=== PATIENT | female | born 1985 | race Caucasian/White ===

== ENCOUNTER 2016-08-05 16:06 | Inpatient (IN) | payer MEDICAID, OTHER ==
[2016-08-05 16:49] LABS: APPEARANCE,URINE SLIGHTLY-CLOUDY; BILIRUBIN,URINE NEGATIVE (NEGATIVE); GLUCOSE, URINE NEGATIVE (NEGATIVE); KETONES,URINE NEGATIVE (NEGATIVE); LEUKOCYTE ESTERASE,URINE NEGATIVE (NEGATIVE); NITRITE,URINE NEGATIVE (NEGATIVE); PROTEIN,URINE NEGATIVE (NEGATIVE); URINE SPECIFIC GRAVITY 1.012; UROBILINOGEN,URINE NEGATIVE mg/dL (<2.0)
[2016-08-05 17:08] LABS: URINE METHADONE SCREEN NEGATIVE; URINE OPIATES LOW NEGATIVE; URINE PHENCYCLIDINE SCREEN NEGATIVE
[2016-08-05 17:17] LABS: URINE BARBITURATES SCREEN NEGATIVE
[2016-08-05] MEDS ORDERED: PENICILLIN G-K 5 MILLION UNIT VIAL ONE (18:56)
[2016-08-05] MEDS ORDERED: PENICILLIN G POTASSIUM 5,000,000 UNIT in DEXTROSE 5%-WATER 100 ML IV ONE (19:05)
[2016-08-05] MEDS ORDERED: RINGERS SOLUTION,LACTATED 1,000 ML IV ONE (19:05)
[2016-08-05] MEDS ORDERED: RINGERS SOLUTION,LACTATED 1,000 ML IV PRN (19:05)
[2016-08-05 19:24] LABS: ABSOLUTE EOSINOPHILS # (AUTO) 0.1 10^3/uL (0.0-0.6); ABSOLUTE MONOCYTES (AUTO) 0.6 10^3/uL (0.1-1.4); BASOPHILS % (AUTO) 0.6 % (0-2); HEMATOCRIT 35.4 % (36.0-47.0); HGB HCT DIFFERENCE 0.6; LYMPHOCYTES % (AUTO) 22.7 % (13-45); MEAN CORPUSCULAR HEMOGLOBIN 30.2 pg (27.0-33.4); MEAN CORPUSCULAR HGB CONC 33.9 g/dL (32.0-36.0); MEAN CORPUSCULAR VOLUME 89 fl (80-97); MONOCYTES % (AUTO) 6.5 % (3-13); RED BLOOD COUNT 3.97 10^6/uL (3.72-5.28); SEGMENTED NEUTROPHILS % (AUTO) 69.2 % (42-78); WHITE BLOOD COUNT 8.7 10^3/uL (4.0-10.5)
[2016-08-05] MEDS ORDERED: EPHEDRINE SULFATE INJ 50 MG/1 ML AMPULE ONE (19:28)
[2016-08-05] MEDS ORDERED: MISOPROSTOL 0.2 MG TABLET ONE (19:28)
[2016-08-05] MEDS ORDERED: BUPIVACAINE HCL 0.25 % INJ/PF (2.5 MG/1 ML) 30 ML VIAL ONE (19:29)
[2016-08-05] MEDS ORDERED: LIDOCAINE 1% INJ-PF (10 MG/ML) 30 ML SDV ONE (19:29)
[2016-08-05] MEDS ORDERED: FENTANYL/BUPIVACAINE/NS/PF 200 MCG/100 ML RTUINJ EPI ONE (19:29)
[2016-08-05] MEDS ORDERED: OXYTOCIN/NORMAL SALINE 20 UNIT/1,000 ML RTUINJ ONE (19:29)
--- NOTE | 2016-08-05 20:00 | L&D Flow Sheet ---
LD Flowsheet Datetime Report Generated by CPN: 08/05/2016 20:00 Datetime: 08/05/2016 19:57 Vital Signs NBP Sys/Clementine/Mean (mmHg): 136 (QS system process) : 73 (QS system process) : 100 (QS system process) Pulse: 88 (QS system process) Datetime: 08/05/2016 19:54 Membrane Status: Ruptured (Shavon Prieto) Membranes Ruptured Date/Time: 08/05/2016 19:52 (Shavon Prieto) Membranes Rupture Method: Spontaneous (Shavon Prieto) Datetime: 08/05/2016 19:52 Vital Signs NBP Sys/Clementine/Mean (mmHg): 138 (QS system process) : 73 (QS system process) : 99 (QS system process) Pulse: 84 (QS system process) Datetime: 08/05/2016 19:50 Pulse: 92 (QS system process) SpO2 (%): 100 (QS system process) Anesthesia Anesthesia Plans: Epidural (Shavon Prieto) Epidural Positioning: Sitting (Shavon Prieto) Epidural Procedure: Cath Placed (Shavon Prieto) Datetime: 08/05/2016 19:49 Anesthesia Anesthesia Plans: Epidural (Shavon Prieto) Epidural Positioning: Sitting (Shavon Prieto) Epidural Procedure: Test Dose (Shavon Prieto) Datetime: 08/05/2016 19:48 Anesthesia Anesthesia Plans: Epidural (Shavon Prieto) Epidural Positioning: Sitting (Shavon Prieto) Datetime: 08/05/2016 19:47 Vital Signs NBP Sys/Clementine/Mean (mmHg): 150 (QS system process) : 92 (QS system process) : 114 (QS system process) Pulse: 85 (QS system process) Datetime: 08/05/2016 19:45 Pulse: 84 (QS system process) SpO2 (%): 98 (QS system process) Datetime: 08/05/2016 19:43 Vital Signs NBP Sys/Clementine/Mean (mmHg): 142 (QS system process) : 77 (QS system process) : 104 (QS system process) Pulse: 86 (QS system process) Datetime: 08/05/2016 19:42 Anesthesia Anesthesia Plans: Epidural (Shavon Prieto) Anesthesia Comments: Dr Chekan at the bedside (Shavon Prieto) Datetime: 08/05/2016 19:40 Pulse: 80 (QS system process) SpO2 (%): 98 (QS system process) Datetime: 08/05/2016 19:39 Anesthesia Anesthesia Plans: Epidural (Shavon Prieto) Epidural Positioning: Sitting (Shavon Prieto) Datetime: 08/05/2016 19:36 Vital Signs NBP Sys/Clementine/Mean (mmHg): 140 (QS system process) : 76 (QS system process) : 100 (QS system process) Pulse: 78 (QS system process) Procedure TIME OUT Procedure Type: epidrual (Shavon Prieto) Procedure Verify: Correct Patient Identity; Correct Side and Site are Marked; Accurate Procedure Consent Form; Agreement on Procedure to be Done; Correct Patient Position; Relevant Images and Results are Properly Labeled and Displayed; Safety Precautions Based on Patient History or Medication Use (Shavon Prieto) Datetime: 08/05/2016 19:33 Anesthesia Anesthesia Plans: Epidural (Shavon Prieto) Epidural Positioning: Sitting (Shavon Prieto) Datetime: 08/05/2016 19:29 Vital Signs NBP Sys/Clementine/Mean (mmHg): 143 (QS system process) : 73 (QS system process) : 102 (QS system process) Pulse: 78 (QS system process) Datetime: 08/05/2016 19:25 Procedure TIME OUT Procedure Type: epidural (Shavon Prieto) Procedure Verify: Correct Patient Identity; Correct Side and Site are Marked; Accurate Procedure Consent Form; Agreement on Procedure to be Done; Correct Patient Position; Relevant Images and Results are Properly Labeled and Displayed; Safety Precautions Based on Patient History or Medication Use (Shavon Prieto) Datetime: 08/05/2016 19:15 Procedure TIME OUT Procedure Type: epidural (Shavon Prieto) Procedure Verify: Correct Patient Identity; Correct Side and Site are Marked; Accurate Procedure Consent Form; Agreement on Procedure to be Done; Correct Patient Position; Relevant Images and Results are Properly Labeled and Displayed; Safety Precautions Based on Patient History or Medication Use (Shavon Prieto) Datetime: 08/05/2016 19:14 Medications Antibiotics: Penicillin IV (Units) @ (Annotations: [id number] units) (Shavon Prieto) Datetime: 08/05/2016 19:12 Patient Care IV/Blood Work: IV Started; IV Bolus Started (Annotations: 18g right forearm) (Shavon Prieto) Datetime: 08/05/2016 18:47 Communication Communication: Provider at Bedside (Angelique Turner RN) Communication Comments: Orders for admission received. (Angelique Turner [facility]) Datetime: 08/05/2016 18:46 Vaginal Exam Dilatation (cm): 6.0 (Angelique Turner [facility] [facility]) Effacement (%): 90 (Angelique Turner [facility] [facility]) Station: -2 (Angelique Turner [facility]) Exam by: Dr. Deleon (Angelique Turner [facility]) Membrane Status: Intact (Angelique Turner RN) Datetime: 08/05/2016 17:30 Uterine Activity Monitor Mode: External; Palpation (Angelique Johnny, RNC) Frequency (min): 8-12 (Angelique Johnny, RNC) Quality: Mild/Moderate (Angelique Johnny, RNC) Duration (sec): 90-120 (Angelique Johnny, RNC) Duration Criteria: Less than Two 120 Second Contractions (Angelique Johnny, RNC) Pattern: Normal: <= 5 Contractions in 10 Minutes (Angelique Johnny, RNC) Resting Tone (Palpate): Relaxed (Angelique Johnny, RNC) Assessment A Monitor Mode: External US (Angelique Johnny, RNC) FHR Baseline Rate : 135 (Angelique Johnny, RNC) Variability: Moderate 6-25 bpm (Angelique Johnny, RNC) Accelerations: Prolonged (Angelique Johnny, RNC) Decelerations: None (Angelique Johnny, RNC) Datetime: 08/05/2016 17:00 Uterine Activity Monitor Mode: External; Palpation (Angelique Johnny, C) Frequency (min): 8-15 (Angelique Johnny, C) Quality: Mild/Moderate (Angelique Johnny, RNC) Duration (sec): 90-120 (Angelique Johnny, RNC) Duration Criteria: Less than Two 120 Second Contractions (Angelique Johnny, RNC) Pattern: Normal: <= 5 Contractions in 10 Minutes (Angelique Johnny, RNC) Resting Tone (Palpate): Relaxed (Angelique Johnny, C) Assessment A Monitor Mode: External US [facility] Baseline Rate : 135 [facility] Variability: Moderate 6-25 bpm [facility] Accelerations: 15X15 ([facility] Decelerations: None [facility] Datetime: 08/05/2016 16:38 Vaginal Exam Dilatation (cm): 4.0 (Angelique Turner, [facility]) Effacement (%): 70 (Angelique Turner, [facility]) Station: -3 [facility] Exam by: Fanny Johnny RN ([facility] Datetime: 08/05/2016 16:31 Vital Signs NBP Sys/Clementine/Mean (mmHg): 133 (QS system process) : 75 (QS system process) : 93 (QS system process) Pulse: 82 (QS system process) Frequency (min): 5 min (Angelique Johnny, RNC) Pain Pain Scale: 2 (Angelique Turner RNC) Pain Presence: Intermittent (Angelique Turner, RNC) Pain Type: Cramping; Contraction (Angelique Turner, RNC) Pain Location: Abdomen (Angelique Turner, RNC) Maternal Assessment Level of Consciousness: Fully Conscious (Angelique Johnny, RNC) DTR's/Clonus: DTRs 2+; No Clonus (Angelique Johnny, RNC) Headache: Denies (Angelique Johnny, RNC) Breath Sounds, Left: Clear and Equal (Angelique Johnny, RNC) Breath Sounds, Right: Clear and Equal (Angelique Johnny, RNC) Nausea/Vomiting: Denies (Angelique Johnny, RNC) RUQ Epigastric Pain: Denies (Angelique Johnny, RNC) Teaching Instructional Method: Verbal; Patient Instructed; Verbalized Understanding (MALENA Kan) Plan of Care: Plan of Care Discussed; Labor (MALENA Kan) Unit Routine: [place] to Room; Call Bran; Handwashing; Monitoring; Bathroom Privileges (MALENA Kan) Notification Reason: Labor Status (MALENA Kan)
--- NOTE | 2016-08-05 20:01 | L&D Flow Sheet ---
LD Flowsheet Datetime Report Generated by CPN: 08/05/2016 20:00 Datetime: 08/05/2016 19:57 Vital Signs NBP Sys/Clementine/Mean (mmHg): 136 (QS system process) : 73 (QS system process) : 100 (QS system process) Pulse: 88 (QS system process) Datetime: 08/05/2016 19:54 Membrane Status: Ruptured (Shavon Prieto) Membranes Ruptured Date/Time: 08/05/2016 19:52 (Shavon Prieto) Membranes Rupture Method: Spontaneous (Shavon Prieto) Datetime: 08/05/2016 19:52 Vital Signs NBP Sys/Clementine/Mean (mmHg): 138 (QS system process) : 73 (QS system process) : 99 (QS system process) Pulse: 84 (QS system process) Datetime: 08/05/2016 19:50 Pulse: 92 (QS system process) SpO2 (%): 100 (QS system process) Anesthesia Anesthesia Plans: Epidural (Shavon Prieto) Epidural Positioning: Sitting (Shavon Prieto) Epidural Procedure: Cath Placed (Shavon Prieto) Datetime: 08/05/2016 19:49 Anesthesia Anesthesia Plans: Epidural (Shavon Prieto) Epidural Positioning: Sitting (Shavon Prieto) Epidural Procedure: Test Dose (Shavon Prieto) Datetime: 08/05/2016 19:48 Anesthesia Anesthesia Plans: Epidural (Shavon Prieto) Epidural Positioning: Sitting (Shavon Prieto) Datetime: 08/05/2016 19:47 Vital Signs NBP Sys/Clementine/Mean (mmHg): 150 (QS system process) : 92 (QS system process) : 114 (QS system process) Pulse: 85 (QS system process) Datetime: 08/05/2016 19:45 Pulse: 84 (QS system process) SpO2 (%): 98 (QS system process) Datetime: 08/05/2016 19:43 Vital Signs NBP Sys/Clementine/Mean (mmHg): 142 (QS system process) : 77 (QS system process) : 104 (QS system process) Pulse: 86 (QS system process) Datetime: 08/05/2016 19:42 Anesthesia Anesthesia Plans: Epidural (Shavon Prieto) Anesthesia Comments: Dr Chekan at the bedside (Shavon Prieto) Datetime: 08/05/2016 19:40 Pulse: 80 (QS system process) SpO2 (%): 98 (QS system process) Datetime: 08/05/2016 19:39 Anesthesia Anesthesia Plans: Epidural (Shavon Prieto) Epidural Positioning: Sitting (Shavon Prieto) Datetime: 08/05/2016 19:36 Vital Signs NBP Sys/Clementine/Mean (mmHg): 140 (QS system process) : 76 (QS system process) : 100 (QS system process) Pulse: 78 (QS system process) Procedure TIME OUT Procedure Type: epidrual (Shavon Prieto) Procedure Verify: Correct Patient Identity; Correct Side and Site are Marked; Accurate Procedure Consent Form; Agreement on Procedure to be Done; Correct Patient Position; Relevant Images and Results are Properly Labeled and Displayed; Safety Precautions Based on Patient History or Medication Use (Shavon Prieto) Datetime: 08/05/2016 19:33 Anesthesia Anesthesia Plans: Epidural (Shavon Prieto) Epidural Positioning: Sitting (Shavon Prieto) Datetime: 08/05/2016 19:29 Vital Signs NBP Sys/Clementine/Mean (mmHg): 143 (QS system process) : 73 (QS system process) : 102 (QS system process) Pulse: 78 (QS system process) Datetime: 08/05/2016 19:25 Procedure TIME OUT Procedure Type: epidural (Shavon Prieto) Procedure Verify: Correct Patient Identity; Correct Side and Site are Marked; Accurate Procedure Consent Form; Agreement on Procedure to be Done; Correct Patient Position; Relevant Images and Results are Properly Labeled and Displayed; Safety Precautions Based on Patient History or Medication Use (Shavon Prieto) Datetime: 08/05/2016 19:15 Procedure TIME OUT Procedure Type: epidural (Shavon Prieto) Procedure Verify: Correct Patient Identity; Correct Side and Site are Marked; Accurate Procedure Consent Form; Agreement on Procedure to be Done; Correct Patient Position; Relevant Images and Results are Properly Labeled and Displayed; Safety Precautions Based on Patient History or Medication Use (Shavon Prieto) Datetime: 08/05/2016 19:14 Medications Antibiotics: Penicillin IV (Units) @ (Annotations: [id number] units) (Shavon Prieto) Datetime: 08/05/2016 19:12 Patient Care IV/Blood Work: IV Started; IV Bolus Started (Annotations: 18g right forearm) (Shavon Prieto) Datetime: 08/05/2016 18:47 Communication Communication: Provider at Bedside (Angelique Turner RN) Communication Comments: Orders for admission received. (Angelique Turner [facility]) Datetime: 08/05/2016 18:46 Vaginal Exam Dilatation (cm): 6.0 (Angelique Turner [facility]) Effacement (%): 90 (Angelique Turner [facility]) Station: -2 (Angelique Turner [facility]) Exam by: Dr. Deleon (Angelique Turner [facility]) Membrane Status: Intact (Angelique Turner RN) Datetime: 08/05/2016 17:30 Uterine Activity Monitor Mode: External; Palpation (Angelique Johnny, RNC) Frequency (min): 8-12 (Angelique Johnny, RNC) Quality: Mild/Moderate (Angelique Johnny, RNC) Duration (sec): 90-120 (Angelique Johnny, RNC) Duration Criteria: Less than Two 120 Second Contractions (Angelique Johnny, RNC) Pattern: Normal: <= 5 Contractions in 10 Minutes (Angelique Johnny, RNC) Resting Tone (Palpate): Relaxed (Angelique Johnny, RNC) Assessment A Monitor Mode: External US (Angelique Johnny, RNC) FHR Baseline Rate : 135 (Angelique Johnny, RNC) Variability: Moderate 6-25 bpm (Aneglique Johnny, RNC) Accelerations: Prolonged (Angelique Johnny, RNC) Decelerations: None (Angelique Johnny, RNC) Datetime: 08/05/2016 17:00 Uterine Activity Monitor Mode: External; Palpation (Angelique Johnny, C) Frequency (min): 8-15 (Angelique Johnny, C) Quality: Mild/Moderate (Angelique Johnny, RNC) Duration (sec): 90-120 (Angelique Johnny, RNC) Duration Criteria: Less than Two 120 Second Contractions (Angelique Johnny, RNC) Pattern: Normal: <= 5 Contractions in 10 Minutes (Angelique Johnny, RNC) Resting Tone (Palpate): Relaxed (Angelique Johnny, C) Assessment A Monitor Mode: External US [facility] FHR Baseline Rate : 135 [facility] Variability: Moderate 6-25 bpm [facility] Accelerations: 15X15 [facility] Decelerations: None [facility] Datetime: 08/05/2016 16:38 Vaginal Exam Dilatation (cm): 4.0 (Angelique Turner, [facility]) Effacement (%): 70 (Angelique Turner, [facility]) Station[facility] -3 [facility] Exam by: Fanny Johnny RN [facility] Datetime: 08/05/2016 16:31 Vital Signs NBP Sys/Clementine/Mean (mmHg): 133 (QS system process) : 75 (QS system process) : 93 (QS system process) Pulse: 82 (QS system process) Frequency (min): 5 min (Angelique Johnny, RNC) Pain Pain Scale: 2 (Angelique Turner RNC) Pain Presence: Intermittent (Angelique Turner, RNC) Pain Type: Cramping; Contraction (Angelique Turner, RNC) Pain Location: Abdomen (Angelique Turner, RNC) Maternal Assessment Level of Consciousness: Fully Conscious (Angelique Johnny, RNC) DTR's/Clonus: DTRs 2+; No Clonus (Angelique Johnny, RNC) Headache: Denies (Angelique Johnny, RNC) Breath Sounds, Left: Clear and Equal (Angelique Johnny, RNC) Breath Sounds, Right: Clear and Equal (Angelique Johnny, RNC) Nausea/Vomiting: Denies (Angelique Johnny, RNC) RUQ Epigastric Pain: Denies (Angelique Johnny, RNC) Teaching Instructional Method: Verbal; Patient Instructed; Verbalized Understanding (MALENA Kan) Plan of Care: Plan of Care Discussed; Labor (MALENA Kan) Unit Routine: [place] to Room; Call Bran; Handwashing; Monitoring; Bathroom Privileges (MALENA Kan) Notification Reason: Labor Status (MALENA Kan)
[2016-08-05] MEDS ORDERED: MEASLES,MUMPS&RUBELLA VACC/PF 0.5 ML VIAL SUBCUT PRN (21:09)
[2016-08-05] MEDS ORDERED: DIPHENHYDRAMINE HCL 25 MG CAPSULE PO PRN (21:09)
[2016-08-05] MEDS ORDERED: PROMETHAZINE HCL INJ 25 MG/1 ML VIAL IV PRN (21:09)
[2016-08-05] MEDS ORDERED: MAGNESIUM HYDROXIDE SUSP 30 ML UDCUP PO PRN (21:09)
[2016-08-05] MEDS ORDERED: NA PHOS,M-B/NA PHOS,DI-BA (ADULT) 133 ML ENEMA PR PRN (21:09)
[2016-08-05] MEDS ORDERED: OXYTOCIN/NORMAL SALINE 1,000 ML IV PRN (21:09)
[2016-08-05] MEDS ORDERED: ZOLPIDEM TARTRATE 5 MG TABLET PO PRN (21:09)
[2016-08-05] MEDS ORDERED: GLYCERIN/WITCH HAZEL LEAF 1 EACH MED..PAD TP PRN (21:09)
[2016-08-05] MEDS ORDERED: ACETAMINOPHEN WITH CODEINE #3 TABLET PO PRN ×2 (21:09)
[2016-08-05] MEDS ORDERED: DIPH/PERTUSS(ACELL)/TETANUS VAC/PF 0.5 ML SYR (>=10YO) IM PRN (21:09)
[2016-08-05] MEDS ORDERED: PSEUDOEPHEDRINE HCL 30 MG TABLET PO PRN (21:09)
[2016-08-05] MEDS ORDERED: BENZOCAINE/MENTHOL AEROSOL SPRAY 56 ML TOP PRN (21:09)
[2016-08-05] MEDS ORDERED: PROMETHAZINE HCL 25 MG SUPP.RECT PR PRN (21:09)
[2016-08-05] MEDS ORDERED: PROMETHAZINE HCL 25 MG TABLET PO PRN (21:09)
[2016-08-05] MEDS ORDERED: ACETAMINOPHEN 650 MG SUPP.RECT PR PRN (21:09)
[2016-08-05] MEDS ORDERED: DIBUCAINE 1% OINTMENT 28 GM TP PRN (21:09)
--- NOTE | 2016-08-05 22:22 | Admission Physical ---
Datetime Report Generated by CPN: 08/05/2016 22:22 CURRENT ADMISSION Chief Complaint: Uterine Contractions Indication for Induction: Postterm; Macrosomia Admit Plan: Admit to Unit; Initiate Labor Protocol ALLERGIES Medication Allergies: No Medication Allergies: No Known Allergies (08/05/2016) Medication Allergies: No Known Allergies (10/24/2010) Latex: No Latex Allergies OBSTETRICAL HISTORY EDC: 08/02/2016 00:00 : 6 Para: 4 Term: 4 : 0 SAB: 1 IAB: 0 Ectopic: 0 Livin Cesareans: 0 VBACs: 0 Multiple Births: 0 Gestational Diabetes: No Rh Sensitization: No Incompetent Cervix: No ANG: No Infertility: No ART Treatment: No Uterine Anomaly: No IUGR: No Hx Previous C/S: No Macrosomia: No Hx Loss/Stillborn: No PIH: No Hx : No Placenta Previa/Abruption: No Depression/PP Depression: No PTL/PROM: No Post Hemorrhage: No Current Procedures: Ultrasound; NST Obstetrical History Comments: G1: 08/28/2006: 40 weeks, Female, 9#5oz, , mec G2: 2008: SAB G3: 02/12/2009: 41 weeks, Male, 8#13oz, G4: 10/24/2010: 41 weeks, Male, 8#15oz, G5: 09/27/2013: 40.5 weeks, Male, 9#11oz, , GDM diet G6: current SEE RECORDS Alcohol: No Marijuana : No Cocaine: No Other Illicit Drugs: No Cigarettes: Former Smoker. 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 Surgery: No Heart Disease: No Hosp/Surgery: No Autoimmune Disorder: No Anesthetic Complications: No Kidney Disease: No Abnormal Pap Smear: Yes Neuro/Epilepsy: No Psychiatric Disorders: No Other Medical Diseases: No Hepatitis/Liver Disease: No Significant Family History: No Varicosities/Phlebitis: No Trauma/Violence : No Thyroid Dysfunction: No Medical History Comments: ASCUS: 02/2013 INFECTIOUS HISTORY Gonorrhea: No Genital Herpes: No Chlamydia: No Tuberculosis: No Syphilis: No Hepatitis: No HIV/AIDS Exposure: No Rash or Viral Illness: No HPV: Yes Infectious History Comments: HPV PHYSICAL EXAM General: Normal HEENT: Normal Neurologic: Normal Thyroid: Normal Heart: Normal Lungs: Normal Breast: Deferred Back: Normal Abdomen: Normal Genitourinary Exam: Normal Extremities: Normal DTRs: Normal Pelvic Type: Adequate Physical Exam Comments: pelvis proven to 9#11oz. Vital Signs: Reviewed; Within Normal Limits VAGINAL EXAM Dilatation: 6 Effacement: 90 Station: -2 Contraction Comments: q2-4 minutes MEMBRANES Membranes: Intact FETUS A EGA: 40.3 Monitoring: External US FHR- Baseline: 155 Variability: Moderate 6-25bpm Accelerations: 15X15 Decelerations: None FHR Category: Category I Presentation: Vertex Admit Comment: 31yo at 40+3ega presents for active labor with ctx q 2-4 minutes and increasing in frequency and discomfort. Cvx changed from 4cm to 6 after ambulation. GBS positive - PCN initiated for GBS prophy. EFW on 07/18 was 3817g (8#7oz). She desires epidural. EFW approx 9-10#. c/b macrosomia. Anticpate . PLANS FOR LABOR AND DELIVERY Labor and Delivery: None Pain Management: Medications; Epidural Feeding Preference: Breast Benefit of Breast Feed Discussed: Yes Circumcision: N/A INFORMED CONSENT Informed Consent Obtained: Vaginal Delivery; Risks, Benefits and Alternatives Discussed Signature: with User ID: [email or web address]
[2016-08-05] MEDS: IBUPROFEN 800 MG TABLET PO SCH (22:39)
[2016-08-05] MEDS: FAMOTIDINE 20 MG TABLET PO SCH (22:39)
[2016-08-05] MEDS ORDERED: PENICILLIN G POTASSIUM 2,500,000 UNIT in DEXTROSE 5%-WATER 50 ML IV SCH (23:06)
--- NOTE | 2016-08-06 04:26 | Delivery Summary ---
Del Sum A-C Datetime Report Generated by CPN: 08/06/2016 04:26 ADMISSION DATA Chief Complaint: Uterine Contractions Indication for Induction: Postterm; Macrosomia Admission Impression: Term, Intrauterine ; Active Labor; Intact Membranes Admit Provider Comments: 31yo at 40+3ega presents for active labor with ctx q 2-4 minutes and increasing in frequency and discomfort. Cvx changed from 4cm to 6 after ambulation. GBS positive - PCN initiated for GBS prophy. EFW on 07/18 was 3817g (8#7oz). She desires epidural. EFW approx 9-10#. c/b macrosomia. Anticpate . DELIVERY PERSONNEL Delivery Doctor:: Rachel Deleon MD Labor and Delivery Nurse:: Shavon Prieto RNdirector of in service education Nurse:: KEO Humphries Tech/TIMING MACHINE OPERATOR: Fatoumata Brown TIMING MACHINE OPERATOR MATERNAL INFORMATION Delivery Anesthesia: Epidural Medications After Delivery: Pitocin Drip 20 Units/1000ml NSS Maternal Complications: Precipitous Labor (<3hrs) Provider Comments: VFI delivered in QUITA presentation with compound left hand, no nuchal cord. Shoulders and body delivered w/o difficulty. Infant to maternal abdomen for NRP/skin to skin. Cord doubly clamped and cut. Placenta delivered intact spontaneously. 1st degree laceration repaired with good hemostasis. Terminal meconium noted at delivery. FF at U. Apgars 9/9. weight pending. Mother and baby stable upon provider leaving the room. LABOR SUMMARY EDC: 08/02/2016 00:00 No. Babies in Womb: 1 Attempted: No Labor Anesthesia: None LABOR INFORMATION Reason for Induction: Not Applicable Onset of Labor: 08/05/2016 18:46 Complete Dilatation: 08/05/2016 19:58 Oxytocin: N/A Group B Beta Strep: Positive Antibiotics # of Doses: 1 Antibiotics Time of Last Dose: 1913 Name of Antibiotic Given: PCN Steroids Given: None Reason Steroids Not Administered: Not Applicable MEMBRANES Membranes Rupture Method: Spontaneous Rupture of Membranes: 08/05/2016 19:52 Length of Rupture (hr): 0.17 Amniotic Fluid Color: Clear (Annotations: Data stored by [facility] on behalf of user) Amniotic Fluid Amount: Moderate Amniotic Fluid Odor: Normal STAGES OF LABOR Stage 1 hr: 1 Stage 1 min: 12 Stage 2 hr: 0 Stage 2 min: 4 Stage 3 hr: 0 Stage 3 min: 4 Total Time in Labor hr: 1 Total Time in Labor min: 20 VAGINAL DELIVERY Episiotomy: None Laceration Extension: First Degree Laceration Type: Perineal Laceration Repair: Yes Laceration Repair Note: superficial ML perineal laceration repaired in usual fashion with good hemostasis with 3-0 vicryl on SH in running fashion. Sponge Count Correct: Yes Sharps Count Correct: Yes CSECTION DELIVERY Primary Indication: N/A Secondary Indication: N/A CSection Incidence: N/A Labor: N/A Elective: N/A CSection Incision: N/A BABY A INFORMATION Delivery Date/Time: 08/05/2016 20:02 Method of Delivery: Vaginal Born in Route : No : N/A Forceps: N/A Vacuum Extraction: N/A Shoulder Dystocia : No PRESENTATION/POSITION BABY A Presentation: Cephalic Cephalic Presentation: Vertex Vertex Position: Left Occipital Anterior Breech Presentation: N/A PLACENTA INFORMATION BABY A Placenta Delivery Time : 08/05/2016 20:06 Placenta Method of Delivery: Spontaneous Placenta Status: Delivered SCORES BABY A Heart Rate 1 min: >100 bpm Resp Effort 1 min: Good Cry Reflex Irritability 1 min: Cough or Sneeze or Pulls Away Muscle Tone 1 min: Active Motion Color 1 min: Body [place], Extremities Blue Resuscitation Effort 1 min: Tactile Stimulation SCORE 1 MIN: 9 Heart Rate 5 min: >100 bpm Resp Effort 5 min: Good Cry Reflex Irritability 5 min: Cough or Sneeze or Pulls Away Muscle Tone 5 min: Active Motion Color 5 min: Body [place], Extremities Blue Resuscitation Effort 5 min: Tactile Stimulation SCORE 5 MIN: 9 INFANT INFORMATION BABY A Gestational Age at Delivery: 40.3 Gestational Status: Full Term- 39- 40.6 Weeks Outcome : Liveborn Infant Condition : Stable Infant Sex: Female IDENTIFICATION BABY A Infant Verification Date/Time: 08/05/2016 20:30 ID Band Number: [id number] Mother's Name Verified: Yes RN Verifying Infant: Fito Colin, RN _ Freddy Prieto, RN WEIGHT/LENGTH BABY A Birthweight (gm): 4045 Weight (lb): 8 Weight (oz): 15 Infant Length (in): 21.00 Infant Length (cm): 53.34 CORD INFORMATION BABY A No. Cord Vessels: 3 Nuchal Cord : N/A Nuchal Cord- Other: left compound hand Cord Blood Taken: Yes-For Storage (Mom's Blood type +) Suction: Mouth; Nose ASSESSMENT BABY A Complications: Other Complications- Other: terminal mec Physical Findings at Delivery: Within Normal Limits Infant Respirations: Appears Normal Skin to Skin: Yes Skin to Skin Time (min): 20 Placement Director/ALS Called : No Care By: Fito Colin RN Transferred To: Remains with Mother BABY B INFORMATION : N/A SIGNATURES Signature: with User ID: [email or web address]
[2016-08-06] MEDS: IBUPROFEN 800 MG TABLET PO SCH ×3 (06:11→21:17)
[2016-08-06 07:39] LABS: HEMATOCRIT 34.2 % (36.0-47.0); HEMOGLOBIN 11.8 g/dL (12.0-15.5); HGB HCT DIFFERENCE 1.2; MEAN CORPUSCULAR HEMOGLOBIN 30.5 pg (27.0-33.4); MEAN CORPUSCULAR HGB CONC 34.4 g/dL (32.0-36.0); MEAN CORPUSCULAR VOLUME 89 fl (80-97); RED BLOOD COUNT 3.85 10^6/uL (3.72-5.28); WHITE BLOOD COUNT 8.9 10^3/uL (4.0-10.5)
[2016-08-06] MEDS: FERROUS SULFATE 325 MG TABLET PO SCH ×2 (09:58→18:31)
[2016-08-06] MEDS: DOCUSATE SODIUM 100 MG CAPSULE PO SCH ×2 (09:59→18:31)
[2016-08-06] MEDS: PRENATAL VITAMIN W-O CA NO5/FE FUMARATE/FA CAPSULE PO SCH (09:59)
[2016-08-06] MEDS: SENNOSIDES/DOCUSATE 8.6-50 MG 1 EACH TABLET PO SCH (09:59)
[2016-08-06] MEDS: FAMOTIDINE 20 MG TABLET PO SCH ×2 (09:59→21:17)
--- NOTE | 2016-08-06 10:39 | PDOC PROGRESS REPORT ---
Subjective-OB Subjective: Post Delivery Day: 31 year old. Denies any needs at this time Physical Exam (OB) Vital Signs: Temp Pulse Resp BP Pulse Ox 98.6 F 71 18 127/75 H 98 08/06/16 08:53 08/06/16 08:53 08/06/16 08:53 08/06/16 08:53 08/06/16 08:53 Intake & Output 08/05/16 08/06/16 08/07/16 06:59 06:59 06:59 Weight 116.75 kg - Lochia Lochia Amount: Small 10-25 ml Lochia Color: Rubra/Red - Abdomen Description: Soft, Round Hernia Present: No Bowel Sounds: Normoactive Flatus Presence: Present Stool: No Fundal Description: Firm, Midline Fundal Height: u/u - u/2 Objective-Diagnostic Laboratory: 08/06/16 07:20 08/05/16 08/05/16 08/05/16 16:20 19:00 19:00 WBC 8.7 RBC 3.97 Hgb 12.0 Hct 35.4 L MCV 89 MCH 30.2 MCHC 33.9 RDW 14.0 Plt Count 120 L Seg Neutrophils % 69.2 Lymphocytes % 22.7 Monocytes % 6.5 Eosinophils % 1.0 Basophils % 0.6 Absolute Neutrophils 6.0 Absolute Lymphocytes 2.0 Absolute Monocytes 0.6 Absolute Eosinophils 0.1 Absolute Basophils 0.0 Urine Color YELLOW Urine Appearance SLIGHTLY-CLOUDY Urine pH 7.0 Ur Specific [place] 1.012 Urine Protein NEGATIVE Urine Glucose (UA) NEGATIVE Urine Ketones NEGATIVE Urine Blood NEGATIVE Urine Nitrite NEGATIVE Ur Leukocyte Esterase NEGATIVE Blood Type A POSITIVE Antibody Screen NEGATIVE 08/06/16 07:20 WBC 8.9 RBC 3.85 Hgb 11.8 L Hct 34.2 L MCV 89 MCH 30.5 MCHC 34.4 RDW 14.0 Plt Count 113 L Seg Neutrophils % Lymphocytes % Monocytes % Eosinophils % Basophils % Absolute Neutrophils Absolute Lymphocytes Absolute Monocytes Absolute Eosinophils Absolute Basophils Urine Color Urine Appearance Urine pH Ur Specific [place] Urine Protein Urine Glucose (UA) Urine Ketones Urine Blood Urine Nitrite Ur Leukocyte Esterase Blood Type Antibody Screen
[2016-08-07] MEDS: IBUPROFEN 800 MG TABLET PO SCH (05:05)
--- NOTE | 2016-08-07 09:54 | PDOC DISCHARGE SUMMARY ---
Final Diagnosis Discharge Date: 08/07/16 - Final Diagnosis (1) Delivery normal Is this a current diagnosis for this admission?: Yes Discharge Data - Discharge Medication Home Medications: Vit #60/Iron Fum/FA [Pnv Folic Acid + Iron Tablet] 1 tab PO DAILY 09/10 Ibuprofen [Motrin 800 mg Tablet] 800 mg PO Q8 #60 tablet 08/07/16 Reason(s) for Admission: Onset of Labor Procedures: NST Intrapartum Procedure(s): Spontaneous Vaginal Delivery Complication(s): Laceration-Perineal Laceration-Degree: 1st - Diagnosis Test Laboratory: Temp Pulse Resp BP Pulse Ox 97.5 F 63 20 129/82 H 99 08/07/16 07:35 08/07/16 07:35 08/07/16 07:35 08/07/16 07:35 08/07/16 07:35 08/05/16 08/05/16 08/06/16 16:20 19:00 07:20 RBC 3.97 3.85 Hgb 12.0 11.8 L Hct 35.4 L 34.2 L Urine Opiates Screen NEGATIVE - Discharge information/Instructions Discharge Activity: Activity As Tolerated, Balance Activity w/Rest, Keep Legs Elevated, No Lifting Over 10 Pounds, No Lifting/Push/Pulling, Pelvic Rest, Slowly Increase Activity, No tub bath Discharge Diet: Regular Disposition: HOME, SELF-CARE Follow up with: [facility] in: 4, Weeks
[2016-08-07] MEDS: FERROUS SULFATE 325 MG TABLET PO SCH (10:08)
[2016-08-07] MEDS: PRENATAL VITAMIN W-O CA NO5/FE FUMARATE/FA CAPSULE PO SCH (10:08)
[2016-08-07] MEDS: SENNOSIDES/DOCUSATE 8.6-50 MG 1 EACH TABLET PO SCH (10:09)
[2016-08-07] MEDS: FAMOTIDINE 20 MG TABLET PO SCH (10:09)
[2016-08-07] MEDS: DOCUSATE SODIUM 100 MG CAPSULE PO SCH (10:09)
[2016-08-07 13:07] VITALS: BP 132/87
== END 2016-08-07 14:51 | disposition home or self-care (01) | DRG 775 ==
LOC: LC 16:06 → LR 18:59 → 2S 22:21
PROVIDERS: ADMIT Student in an Organized Health Care Education/Training Program; ATTEND Student in an Organized Health Care Education/Training Program
PROC: 10E0XZZ Delivery of Products of Conception, External Approach (ICD-10-PCS; principal; 2016-08-05)
PROC: 0HQ9XZZ Repair Perineum Skin, External Approach (ICD-10-PCS; 2016-08-05)
DX: O48.0 Post-term pregnancy (principal); O36.63X0 Maternal care for excessive fetal growth, third trimester, not applicable or unspecified; O99.824 Streptococcus B carrier state complicating childbirth; O62.3 Precipitate labor; O32.6XX0 Maternal care for compound presentation, not applicable or unspecified; O32.2XX0 Maternal care for transverse and oblique lie, not applicable or unspecified; O77.0 Labor and delivery complicated by meconium in amniotic fluid; O70.0 First degree perineal laceration during delivery; Z3A.40 40 weeks gestation of pregnancy; Z37.0 Single live birth
CPT/HCPCS: 36415; 80307; 81005; 85025; 85027; 86592; 86850; 86900; 86901; J2540; J2590; J3490